=== PATIENT | male | born 1995 | race Caucasian/White ===

== ENCOUNTER 2018-10-09 14:01 | Emergency (ER) | payer OTHER ==
--- NOTE | 2018-10-09 14:51 | EDM.PDOC ---
ED HPI GENERAL MEDICAL PROBLEM - General Stated Complaint: POSSIBLE CO2 POISONING Time Seen by Provider: 10/09/18 14:32 Source of Information: Reports: Patient History Limitations: Reports: No Limitations - History of Present Illness INITIAL COMMENTS - FREE TEXT/NARRATIVE: 22-year-old male who works at [employer] and was walking up stairs along a conveyor belt and then went through a tunnel that connects the conveyor belt to another building and on the way up the enclosed stairs and through the tunnel he begin to feel somewhat short of breath, lightheaded, off balance, nauseated, dopey feeling and also with headache. He reports that a coworker that was walking with him had similar type symptoms. They came out of the tunnel into an open space and after a period of time begin to feel better. Following this they walked back through the tunnel and down the stairs and there symptoms returned. This occurred approximately 10:30 to 11 AM today. The patient reports that he persisted having symptoms of feeling off balance, dizzy and nausea with mild headache even until now. The other members who were exposed including the associated that was walking with him and others who went to check on the area have had all other symptoms resolve. Someone actually went up to check for monoxide but machine failed when they were getting to the area to check it. The patient does feel somewhat better with time but he still has some mild symptoms. He really had no chest pain or discomfort. He does have a mild headache that he would rated as about a 2-3/10. It is a dull and aching. There is no radiation of the pain. He had had no antecedent symptoms. There are no other associated signs or symptoms. There are no other modifying factors. 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 He was placed on oxygen on arrival here.) HEADACHE Pain Score (Numeric/FACES): 5 - Related Data Allergies Allergy/AdvReac Type Severity Reaction Status Date / Time No Known Allergies Allergy Verified 07/01/19 14:59 Home Meds: Home Meds NK [No Known Home Meds] 10/09/18 [History] Past Medical History - Past Health History Medical/Surgical History: Denies Medical/Surgical History (Surgical history as detailed below.) - Past Surgical History HEENT Surgical History: Reports: Tonsillectomy Social & Family History - Tobacco Use Smoking Status *Q: Former Smoker (Quit smoking 3 days ago.) - Alcohol Use Alcohol Use History: Yes Alcohol Use Comment: Drinks alcohol twice weekly. - Living Situation & Occupation Living situation: Reports: Single Occupation: Employed (Works at [employer].) ED ROS GENERAL - Review of Systems Review Of Systems: See Below Constitutional: Reports: Malaise HEENT: Reports: No Symptoms Respiratory: Reports: Shortness of Breath Cardiovascular: Reports: Dyspnea on Exertion Endocrine: Reports: No Symptoms GI/Abdominal: Reports: Nausea : Reports: No Symptoms Musculoskeletal: Reports: No Symptoms Skin: Reports: No Symptoms Neurological: Reports: Headache Hematologic/Lymphatic: Reports: No Symptoms Immunologic: Reports: Seasonal Allergy ED EXAM, GENERAL - Physical Exam Exam: See Below Exam Limited By: No Limitations General Appearance: Alert, WD/WN, Mild Distress Eye Exam: Bilateral Eye: EOMI, Normal Inspection, PERRL Ears: Normal External Exam Ear Exam: Bilateral Ear: Auricle Normal Nose: Normal Inspection, Normal Mucosa, No Blood Throat/Mouth: Normal Inspection, Normal Oropharynx, Normal Voice, No Airway Compromise Head: Atraumatic, Normocephalic Neck: Normal Inspection, Supple, Non-Tender, Full Range of Motion Respiratory/Chest: No Respiratory Distress, Lungs Clear, Normal Breath Sounds, No Accessory Muscle Use, Chest Non-Tender Cardiovascular: Normal Peripheral Pulses, Regular Rate, Rhythm, No JVD Peripheral Pulses: 2+: Radial (L), Radial (R) GI/Abdominal: Normal Bowel Sounds, Soft, Non-Tender, No Mass Back Exam: Normal Inspection Extremities: Normal Inspection, Normal Range of Motion, Non-Tender, No Pedal Edema, Normal Capillary Refill Neurological: Alert, Oriented, CN II-XII Intact, Normal Cognition, No Motor/ Sensory Deficits Psychiatric: Normal Affect Skin Exam: Warm, Dry, Intact, Normal Color, No Rash EKG INTERPRETATION EKG Date: 10/09/18 Time: 15:07 Rhythm: NSR Rate (Beats/Min): 70 [place]: Normal P-Wave: Present QRS: Normal ST-T: Normal QT: Normal Comparison: NA - No Prior EKG EKG Interpretation Comments: Normal sinus rhythm with a rate of 70. There is a normal axis. There are normal intervals including a normal QTc. This is a normal EKG. Course - Vital Signs Last Recorded V/S: Last Vital Signs Temp 36.9 C 10/09/18 17:00 Pulse 70 10/09/18 17:00 Resp 17 10/09/18 17:00 BP 116/81 10/09/18 17:00 Pulse Ox 100 10/09/18 17:00 - Orders/Labs/Meds Orders: Active Orders 24 hr Category Date Time Status EKG Documentation Completion [RC] ASDIRECTED Care 10/09/18 14:49 Active Oxygen Therapy Adult [Oxygen Therapy, ED] [RC] Care 10/09/18 14:48 Active ASDIRECTED EKG 12 Lead [EK] Routine Ther 10/09/18 14:48 Ordered Labs: Laboratory Tests 10/09/18 10/09/18 10/09/18 Range/Units 15:05 15:05 15:05 WBC 9.6 (4.5-12.0) X10-3/uL RBC 4.99 (4.30-5.75) x10(6)uL Hgb 15.4 (13.5-17.8) g/dL Hct 44.3 (30.0-51.3) % MCV 88.7 (80-96) fL MCH 30.8 (27.7-33.6) pg MCHC 34.7 (32.2-35.4) g/dL RDW 12.3 (11.5-15.5) % Plt Count 278 (125-369) X10(3)uL MPV 8.0 (7.4-10.4) fL Neut % (Auto) 68.2 (46-82) % Lymph % (Auto) 20.6 (13-37) % [place] % (Auto) 6.4 (4-12) % Eos % (Auto) 4 (1.0-5.0) % Baso % (Auto) 1 (0-2) % Neut # (Auto) 6.5 (1.6-8.3) # Lymph # (Auto) 2.0 (0.6-5.0) # [place] # (Auto) 0.6 (0.0-1.3) # Eos # (Auto) 0.4 (0.0-0.8) # Baso # (Auto) 0.1 (0.0-0.2) # Carbon Monoxide, Qual Sodium 141 (135-145) mmol/L Potassium 3.8 (3.5-5.3) mmol/L Chloride 102 (100-110) mmol/L Carbon Dioxide 30 (21-32) mmol/L BUN 17 (7-18) mg/dL Creatinine 1.0 (0.70-1.30) mg/dL Est Cr Clr Drug Dosing 118.63 mL/min Estimated GFR (MDRD) > 60 (>60) BUN/Creatinine Ratio 17.0 (9-20) Glucose 92 (80-116) mg/dL Calcium 9.3 (8.6-10.2) mg/dL Total Bilirubin 0.5 (0.1-1.3) mg/dL AST 23 (5-25) IU/L ALT 30 (12-36) U/L Alkaline Phosphatase 80 (56-112) IU/L Troponin I < 0.017 L (<0.017-0.056) ng/mL Total Protein 8.3 H (6.0-8.0) g/dL Albumin 4.3 (3.5-5.2) g/dL Globulin 4.0 g/dL Albumin/Globulin Ratio 1.1 10/09/18 Range/Units 15:05 WBC (4.5-12.0) X10-3/uL RBC (4.30-5.75) x10(6)uL Hgb (13.5-17.8) g/dL Hct (30.0-51.3) % MCV (80-96) fL MCH (27.7-33.6) pg MCHC (32.2-35.4) g/dL RDW (11.5-15.5) % Plt Count (125-369) X10(3)uL MPV (7.4-10.4) fL Neut % (Auto) (46-82) % Lymph % (Auto) (13-37) % [place] % (Auto) (4-12) % Eos % (Auto) (1.0-5.0) % Baso % (Auto) (0-2) % Neut # (Auto) (1.6-8.3) # Lymph # (Auto) (0.6-5.0) # [place] # (Auto) (0.0-1.3) # Eos # (Auto) (0.0-0.8) # Baso # (Auto) (0.0-0.2) # Carbon Monoxide, Qual 2.9 Sodium (135-145) mmol/L Potassium (3.5-5.3) mmol/L Chloride (100-110) mmol/L Carbon Dioxide (21-32) mmol/L BUN (7-18) mg/dL Creatinine (0.70-1.30) mg/dL Est Cr Clr Drug Dosing mL/min Estimated GFR (MDRD) (>60) BUN/Creatinine Ratio (9-20) Glucose (80-116) mg/dL Calcium (8.6-10.2) mg/dL Total Bilirubin (0.1-1.3) mg/dL AST (5-25) IU/L ALT (12-36) U/L Alkaline Phosphatase (56-112) IU/L Troponin I (<0.017-0.056) ng/mL Total Protein (6.0-8.0) g/dL Albumin (3.5-5.2) g/dL Globulin g/dL Albumin/Globulin Ratio - Re-Assessments/Exams Free Text/Narrative Re-Assessment/Exam: 10/09/18 17:08: Patient has remained vitally stable since being to the emergency department. He has been on 100% nonrebreather mask with oxygen since he was evaluated by me initially in the emergency department. His symptoms are completely resolved. He feels much back to normal. His EKG was normal. His laboratory tests including a carbon monoxide level was just came back from a send out from an outside facility were normal. I am concerned that there was possible carbon monoxide exposure at his workplace and I have advised him not to return to the environment where he was potentially exposed until his company has completely and thoroughly cleared the area as safe. No work until tomorrow. Departure - Departure Time of Disposition: 17:15 Disposition: Home, Self-Care 01 Condition: Good Clinical Impression: Dizziness, Nausea, Toxin exposure - Discharge Information Referrals: PCP,None [Primary Care Provider] - Additional Instructions: Your blood tests were all reassuringly normal. Your EKG was normal. Your carbon monoxide level was not elevated. However, as we discussed, I am concerned that you had some toxin exposure and potentially carbon monoxide exposure at your workplace. No work until tomorrow. Your workplace needs to thoroughly investigate the area were you and your associates were having symptoms and clear it as safe to return to work before you return to that area. Rest. Drink plenty of fluids. Back to the emergency department for trouble breathing, worsening dizziness, unrelenting vomiting or any other concerning sign or symptom. - My Orders Last 24 Hours: My Active Orders 10/09/18 14:48 Oxygen Therapy Adult [Oxygen Therapy, ED] [RC] ASDIRECTED EKG 12 Lead [EK] Routine 10/09/18 14:49 EKG Documentation Completion [RC] ASDIRECTED - Assessment/Plan Last 24 Hours: My Active Orders 10/09/18 14:48 Oxygen Therapy Adult [Oxygen Therapy, ED] [RC] ASDIRECTED EKG 12 Lead [EK] Routine 10/09/18 14:49 EKG Documentation Completion [RC] ASDIRECTED
== END 2018-10-09 17:30 | disposition home or self-care (01) ==
LOC: FB.ED 14:01
DX: R42 Dizziness and giddiness (principal); R06.02 Shortness of breath; R11.0 Nausea; R51 Headache; Z57.5 Occupational exposure to toxic agents in other industries; Z87.891 Personal history of nicotine dependence
CPT/HCPCS: 36415; 80053; 82375; 84484; 85025; 93005; 99283-25